=== PATIENT | male | born 1970 | race Caucasian/White ===

== ENCOUNTER 2017-10-12 10:57 | Emergency (ER) | payer OTHER ==
[~2017-10-12] VITALS: Ht 165.1 cm; Wt 55.5 kg
[2017-10-12 11:17] VITALS: BP 132/84
[2017-10-12] MEDS ORDERED: FLEXERIL10 MG PO (11:28)
[2017-10-12] MEDS ORDERED: MOTRIN800 MG PO (11:28)
[2017-10-12] MEDS ORDERED: LIDODERM 5% P1 PATCH TD (11:28)
== END 2017-10-12 11:52 | disposition home or self-care (01) ==
LOC: EME 10:57
DX: S39.012A Strain of muscle, fascia and tendon of lower back, initial encounter (principal); M62.838 Other muscle spasm; M54.32 Sciatica, left side; Y93.H1 Activity, digging, shoveling and raking
CPT/HCPCS: 99281; 99284; J1885

== ENCOUNTER 2017-10-16 11:03 | Emergency (ER) | payer OTHER ==
[~2017-10-16] VITALS: Ht 165.1 cm; Wt 56.8 kg
[~2017-10-16 11:03] MED LIST: FLEXERIL10 MG PO; LIDODERM 5% P1 PATCH TD; MOTRIN800 MG PO
[2017-10-16] MEDS ORDERED: FLEXERIL10 MG PO (11:14)
[2017-10-16 11:29] VITALS: BP 131/89
== END 2017-10-16 11:32 | disposition home or self-care (01) ==
LOC: EME 11:03
DX: M54.9 Dorsalgia, unspecified (principal); F17.200 Nicotine dependence, unspecified, uncomplicated
CPT/HCPCS: 99281; 99282